=== PATIENT | female | born 1995 | race Caucasian/White ===

== ENCOUNTER 2018-03-12 20:11 | Emergency (ER) | payer OTHER ==
[~2018-03-12] VITALS: Ht 160 cm; Wt 53.3 kg
[2018-03-12 20:21] VITALS: BP 120/79
[2018-03-12] MEDS ORDERED: FAMOTIDINE 20 MG TABLET ONE (21:06)
[2018-03-12] MEDS ORDERED: FAMOTIDINE 20 MG TABLET PO ONE (21:30)
== END 2018-03-12 22:14 | disposition home or self-care (01) ==
LOC: ED 22:08
DX: L50.1 Idiopathic urticaria (principal)
CPT/HCPCS: 99283; J7512